=== PATIENT | female | born 1985 | race Caucasian/White ===

== ENCOUNTER 2022-12-27 02:54 | Emergency (ER) | payer MEDICAID ==
[~2022-12-27] VITALS: Ht 165.1 cm; Wt 89.0 kg
[2022-12-27 02:59] VITALS: BP 143/75; O2SAT 98
[2022-12-27] MEDS ORDERED: NAPROXEN 250MG TABLET PO ONE (03:45)
[2022-12-27] MEDS: NAPROXEN 500MG TABLET PO NR (03:52)
[2022-12-27] MEDS ORDERED: NAPR-1074 MT (04:49)
[2022-12-27] MEDS ORDERED: BACL-141 MT (04:49)
[2022-12-27 05:09] VITALS: PULSE 84; RESP 16; TEMP 97.8
== END 2022-12-27 05:00 | disposition home or self-care (01) ==
LOC: ER 02:54
DX: M79.605 Pain in left leg (principal); Z00.00 Encounter for general adult medical examination without abnormal findings; Z98.890 Other specified postprocedural states
CPT/HCPCS: 81025; 93971; 99284

== ENCOUNTER 2023-02-02 21:22 | Emergency (ER) | payer MEDICAID ==
[~2023-02-02] VITALS: Ht 165.1 cm; Wt 93.2 kg
[~2023-02-02 21:22] MED LIST: BACL-141 MT; NAPR-1074 MT
[2023-02-02 22:49] VITALS: BP 121/74; PULSE 100; RESP 14; TEMP 98.1; O2SAT 98
[2023-02-03] MEDS ORDERED: AMOX1TAB16 MT (00:39)
[2023-02-03] MEDS ORDERED: P50 MT (00:39)
== END 2023-02-03 01:44 | disposition home or self-care (01) ==
LOC: ER 21:22
DX: J02.9 Acute pharyngitis, unspecified (principal); R68.84 Jaw pain; Z98.890 Other specified postprocedural states
CPT/HCPCS: 99283; Z7610 ×2

== ENCOUNTER 2024-01-06 01:20 | Emergency (ER) | payer MEDICAID ==
[~2024-01-06] VITALS: Ht 165.1 cm; Wt 93.0 kg
[~2024-01-06 01:20] MED LIST changes: +AMOX1TAB16 MT; +P50 MT
[2024-01-06 01:43] VITALS: O2SAT 98
[2024-01-06 02:28] LABS: BASOPHILS % 0.3 % (0.0-2.0); EOSINOPHILS % 1.8 % (0.0-5.0); HEMATOCRIT. 38.2 % (36.0-48.0); HEMOGLOBIN. 12.7 g/dL (12.0-16.0); LYMPHOCYTES % 30.5 % (20.0-50.0); MEAN CORPUSCULAR HEMOGLOBIN 29.2 pg (28.0-32.0); MEAN CORPUSCULAR HGB CONC 33.1 g/dL (31.0-37.0); MEAN CORPUSCULAR VOLUME 88.2 fL (81.0-99.0); MONOCYTES % 6.4 % (2.0-8.0); PLATELET 176 x1000/uL (130-400); RED BLOOD CELL COUNT 4.33 mill/uL (4.2-5.4); RED CELL DISTRIBUTION WIDTH 14.7 % (11.6-14.6); WHITE BLOOD COUNT 6.3 x1000/uL (4.5-11.0)
[2024-01-06 02:52] LABS: CARBON DIOXIDE 27 mEq/L (21-32); CHLORIDE 105 mEq/L (98-107); POTASSIUM 3.8 mEq/L (3.5-5.1); SODIUM 138 mEq/L (136-145)
[2024-01-06 02:53] LABS: CALCIUM 9.5 mg/dL (8.7-10.4)
[2024-01-06 02:58] LABS: CREATININE 0.9 mg/dL (0.6-1.0); GLUCOSE 112 mg/dL (70-105); UREA NITROGEN BLOOD 18 mg/dL (9-23)
[2024-01-06 02:59] LABS: ALANINE AMINOTRANSFERASE 12 IU/L (10-49)
[2024-01-06 03:00] LABS: ALBUMIN 4.2 g/dL (3.2-4.8); ASPARTATE AMINOTRANSFERASE 15 IU/L (<34); BILIRUBIN TOTAL 0.4 mg/dL (0.1-1.0); PROTEIN TOTAL 6.9 g/dL (6.0-8.3)
[2024-01-06 03:04] LABS: BILIRUBIN DIRECT < 0.1 mg/dL (<=3.0)
[2024-01-06 05:28] VITALS: BP 121/79; PULSE 83; RESP 16; TEMP 36.89184; O2SAT 100
[2024-01-06 06:02] LABS: CLARITY URINE CLEAR (CLEAR); COLOR URINE YELLOW (YELLOW); GLUCOSE URINE NEGATIVE (NEGATIVE); KETONES URINE NEGATIVE (NEGATIVE); LEUKOCYTE ESTERASE URINE NEGATIVE (NEGATIVE); NITRITE URINE NEGATIVE (NEGATIVE); OCCULT BLOOD URINE NEGATIVE (NEGATIVE); PH URINE 5.5 (4.5-8.0); PROTEIN URINE NEGATIVE (NEGATIVE); SPECIFIC GRAVITY URINE 1.023 (1.005-1.030); UROBILINOGEN URINE 0.2 E.U./dL (0.2-1.0)
[2024-01-06 06:14] LABS: UCG SCREEN NEGATIVE
== END 2024-01-06 05:40 | disposition home or self-care (01) ==
LOC: ER 01:20
DX: R10.2 Pelvic and perineal pain (principal); Z98.890 Other specified postprocedural states
CPT/HCPCS: 36415; 76830; 76856; 80048; 80076; 81003; 81025; 85025; 86850; 86900; 99284

== ENCOUNTER 2024-04-06 01:12 | Emergency (ER) | payer MEDICAID ==
[~2024-04-06] VITALS: Ht 165.1 cm; Wt 95.3 kg
[2024-04-06 01:26] VITALS: BP 122/87; PULSE 78; RESP 16; TEMP 37.2; O2SAT 100
[2024-04-06 01:53] LABS: CLARITY URINE CLEAR (CLEAR); COLOR URINE YELLOW (YELLOW); GLUCOSE URINE NEGATIVE (NEGATIVE); KETONES URINE NEGATIVE (NEGATIVE); LEUKOCYTE ESTERASE URINE NEGATIVE (NEGATIVE); NITRITE URINE NEGATIVE (NEGATIVE); OCCULT BLOOD URINE 2+ (NEGATIVE); PH URINE 5.5 (4.5-8.0); PROTEIN URINE NEGATIVE (NEGATIVE); SPECIFIC GRAVITY URINE 1.013 (1.005-1.030); UROBILINOGEN URINE 0.2 E.U./dL (0.2-1.0)
[2024-04-06 02:53] LABS: CHLORIDE 107 mEq/L (98-107); POTASSIUM 3.5 mEq/L (3.5-5.1); SODIUM 140 mEq/L (136-145)
[2024-04-06 02:54] LABS: CARBON DIOXIDE 25 mEq/L (21-32)
[2024-04-06 02:55] LABS: CALCIUM 9.3 mg/dL (8.7-10.4)
[2024-04-06 02:59] LABS: CREATININE 0.7 mg/dL (0.6-1.0); GLUCOSE 109 mg/dL (70-105); UREA NITROGEN BLOOD 9 mg/dL (9-23)
[2024-04-06 03:21] LABS: HCG SCREEN POSITIVE
[2024-04-06 03:33] LABS: BASOPHILS % 0.3 % (0.0-2.0); HEMATOCRIT. 36.2 % (36.0-48.0); HEMOGLOBIN. 12.5 g/dL (12.0-16.0); LYMPHOCYTES % 26.3 % (20.0-50.0); MEAN CORPUSCULAR HEMOGLOBIN 30.2 pg (28.0-32.0); MEAN CORPUSCULAR HGB CONC 34.5 g/dL (31.0-37.0); MEAN CORPUSCULAR VOLUME 87.7 fL (81.0-99.0); MEAN PLATELET VOLUME 9.3 fl (7.4-10.4); NEUTROPHILS % 66.4 % (40.0-76.0); PLATELET 188 x1000/uL (130-400); RED BLOOD CELL COUNT 4.13 mill/uL (4.2-5.4); RED CELL DISTRIBUTION WIDTH 14.6 % (11.6-14.6); WHITE BLOOD COUNT 7.4 x1000/uL (4.5-11.0)
[2024-04-06 04:15] LABS: SQUAMOUS EPITHELIAL CELL URINE 1+ /lpf (RARE/1+)
[2024-04-06 04:16] LABS: BACTERIA URINE 1+; RBC URINE 0-2 /hpf (0-2); WBC URINE 0-2 /hpf (0-2)
== END 2024-04-06 06:41 | disposition home or self-care (01) ==
LOC: ER 01:12
DX: O20.0 Threatened abortion (principal); Z3A.19 19 weeks gestation of pregnancy; Z98.890 Other specified postprocedural states
CPT/HCPCS: 36415; 76801; 80048; 81003; 81025; 84702; 84703; 85025; 86850; 86900; 99284

== ENCOUNTER 2024-04-11 04:55 | Emergency (ER) | payer MEDICAID ==
[~2024-04-11] VITALS: Ht 165.1 cm; Wt 94.9 kg
[2024-04-11 05:02] VITALS: O2SAT 98
[2024-04-11 05:12] VITALS: BP 143/86; PULSE 100; RESP 18; TEMP 36.7; O2SAT 99
[2024-04-11 05:16] LABS: BASOPHILS % 0.3 % (0.0-2.0); EOSINOPHILS % 0.9 % (0.0-5.0); HEMATOCRIT. 37.8 % (36.0-48.0); HEMOGLOBIN. 12.9 g/dL (12.0-16.0); LYMPHOCYTES % 16.9 % (20.0-50.0); MEAN CORPUSCULAR HEMOGLOBIN 29.9 pg (28.0-32.0); MEAN CORPUSCULAR VOLUME 87.9 fL (81.0-99.0); MEAN PLATELET VOLUME 8.7 fl (7.4-10.4); MONOCYTES % 5.6 % (2.0-8.0); NEUTROPHILS % 76.3 % (40.0-76.0); PLATELET 185 x1000/uL (130-400); RED BLOOD CELL COUNT 4.29 mill/uL (4.2-5.4); RED CELL DISTRIBUTION WIDTH 14.7 % (11.6-14.6); WHITE BLOOD COUNT 9.5 x1000/uL (4.5-11.0)
[2024-04-11 05:27] LABS: CHLORIDE 107 mEq/L (98-107); POTASSIUM 3.9 mEq/L (3.5-5.1); SODIUM 140 mEq/L (136-145)
[2024-04-11 05:28] LABS: CALCIUM 9.4 mg/dL (8.7-10.4); CARBON DIOXIDE 26 mEq/L (21-32)
[2024-04-11 05:33] LABS: CREATININE 0.6 mg/dL (0.6-1.0); GLUCOSE 119 mg/dL (70-105); UREA NITROGEN BLOOD 9 mg/dL (9-23)
[2024-04-11 05:35] LABS: ALANINE AMINOTRANSFERASE 15 IU/L (10-49); ALBUMIN 4.2 g/dL (3.2-4.8); ASPARTATE AMINOTRANSFERASE 15 IU/L (<34); BILIRUBIN TOTAL 0.5 mg/dL (0.1-1.0)
[2024-04-11 05:45] LABS: B-HCG QUANTITATIVE 12773 mIU/mL (<3)
[2024-04-11] MEDS ORDERED: IBUP-2030 PO (06:05)
[2024-04-11] MEDS: RHO(D) IMMUNE GLOBULIN 300 MCG/SYR IM ONE (06:24)
== END 2024-04-11 06:29 | disposition home or self-care (01) ==
LOC: ER 04:55
DX: O20.0 Threatened abortion (principal); Z3A.10 10 weeks gestation of pregnancy; Z79.1 Long term (current) use of non-steroidal anti-inflammatories (NSAID)
CPT/HCPCS: 80053; 84702; 85025; 86850; 86900; 86901; 36415; 76801; 90384 ×2; 96372; 99285; Z7610; 36430; J2791

== ENCOUNTER 2024-06-17 17:42 | Emergency (ER) | payer MEDICAID ==
[~2024-06-17] VITALS: Ht 165.1 cm; Wt 109.0 kg
[~2024-06-17 17:42] MED LIST changes: +IBUP-2030 PO
[2024-06-17 17:44] VITALS: O2SAT 100
[2024-06-17 17:59] VITALS: BP 133/84; PULSE 91; RESP 16; TEMP 36.8; O2SAT 98
[2024-06-17 18:29] LABS: BASOPHILS % 0.3 % (0.0-2.0); EOSINOPHILS % 0.8 % (0.0-5.0); HEMATOCRIT. 37.7 % (36.0-48.0); HEMOGLOBIN. 12.7 g/dL (12.0-16.0); LYMPHOCYTES % 25.6 % (20.0-50.0); MEAN CORPUSCULAR HEMOGLOBIN 28.6 pg (28.0-32.0); MEAN CORPUSCULAR HGB CONC 33.7 g/dL (31.0-37.0); MEAN CORPUSCULAR VOLUME 84.9 fL (81.0-99.0); MONOCYTES % 5.2 % (2.0-8.0); NEUTROPHILS % 68.1 % (40.0-76.0); PLATELET 192 x1000/uL (130-400); RED BLOOD CELL COUNT 4.43 mill/uL (4.2-5.4); RED CELL DISTRIBUTION WIDTH 13.8 % (11.6-14.6); WHITE BLOOD COUNT 6.7 x1000/uL (4.5-11.0)
[2024-06-17 18:40] LABS: CHLORIDE 108 mEq/L (98-107); POTASSIUM 3.6 mEq/L (3.5-5.1); SODIUM 142 mEq/L (136-145)
[2024-06-17 18:41] LABS: CALCIUM 9.3 mg/dL (8.7-10.4); CARBON DIOXIDE 25 mEq/L (21-32)
[2024-06-17 18:44] LABS: HCG SCREEN NEGATIVE
[2024-06-17 18:46] LABS: CREATININE 0.7 mg/dL (0.6-1.0); GLUCOSE 160 mg/dL (70-105); UREA NITROGEN BLOOD 13 mg/dL (9-23)
[2024-06-17 18:52] LABS: TROPONIN I HIGH SENSITIVITY < 4 ng/L (3.0-34)
[2024-06-17 19:25] LABS: CLARITY URINE CLEAR (CLEAR); COLOR URINE YELLOW (YELLOW); GLUCOSE URINE NEGATIVE (NEGATIVE); KETONES URINE NEGATIVE (NEGATIVE); LEUKOCYTE ESTERASE URINE NEGATIVE (NEGATIVE); NITRITE URINE NEGATIVE (NEGATIVE); OCCULT BLOOD URINE NEGATIVE (NEGATIVE); PROTEIN URINE NEGATIVE (NEGATIVE); SPECIFIC GRAVITY URINE 1.016 (1.005-1.030)
== END 2024-06-17 20:19 | disposition home or self-care (01) ==
LOC: ER 17:42
DX: R00.2 Palpitations (principal); Z98.890 Other specified postprocedural states; Z79.899 Other long term (current) drug therapy
CPT/HCPCS: 36415; 80048; 81003; 81025; 82962; 84484; 84703; 85025; 93005; 99284